=== PATIENT | female | born 1990 | race Caucasian/White ===

== ENCOUNTER 2017-12-09 08:57 | Inpatient (IN) | payer OTHER ==
[~2017-12-09 08:57] MED LIST: ACETAMINOPHEN 500 MG TAB PO PRN; DIPHENHYDRAMINE 50 MG/ML VIAL IV PRN; METOCLOPRAMIDE 10 MG/2mL INJ IV PRN; ONDANSETRON 4 MG/2 ML VIAL IV PRN; Ringers Lactate 1,000 ML IV PRN; Ringers Lactate 1,000 ML IV SCH
[2017-12-09] MEDS ORDERED: miSOPROStol 100 MCG TAB PO ONE (10:03)
--- OUTSIDE RECORDS SUMMARY | 2017-12-09 10:23 | XMS REPORT ---
:1990 Author Organization eClinicalWorks Care Team Providers Name Role Phone Ludmila Mendoza Provider Role Unavailable Allergies No Known Allergies Problems Problem Type Condition Code Onset Dates Condition Status Problem Normal first in second Z34.02 Active trimester Assessment Normal first in second Z34.02 Active trimester Problem Major depressive disorder, single F32.9 Active episode, unspecified Assessment Major depressive disorder, single F32.9 Active episode, unspecified Medications Medication Code Code Instructions Start End Date Status Dosage System Date Prenate Basia [facility] [id number] 29-0.6-0.4-350 July 31, Active 1 capsule MG Orally Once a 2017 Results No Known Results Summary Purpose eClinicalWorks Submission
--- OUTSIDE RECORDS SUMMARY | 2017-12-09 10:23 | XMS REPORT ---
[...] Date Status Dosage System Date Prenate Basia [facility] [id number] 29-0.6-0.4-350 July 31, Active 1 capsule MG Orally Once a 2017 Results No Known Results Summary Purpose eClinicalWorks Submission
--- OUTSIDE RECORDS SUMMARY | 2017-12-09 10:23 | XMS REPORT ---
:1990 Author Organization eClinicalWorks Care Team Providers Name Role Phone Ludmila Mendoza Provider Role Unavailable Allergies No Known Allergies Problems Problem Type Condition Code Onset Dates Condition Status Problem Other mental disorders complicating O99.343 Active , third trimester Problem SGA (small for gestational age) P05.10 Active Problem Supervision of young primigravida, O09.613 Active third trimester Problem Major depressive disorder, single F32.9 Active episode, unspecified Medications Medication Code System Code Instructions Start End Date Status Dosage Date Ferralet 90 [facility] [id number] 90-1 MG Orally November 22, Active 1 tablet twice a day 2018 after a meal Results No Known Results Summary Purpose eClinicalWorks Submission
--- OUTSIDE RECORDS SUMMARY | 2017-12-09 10:23 | XMS REPORT ---
:1990 Author Organization eClinicalWorks Care Team Providers Name Role Phone Ludmila Mendoza Provider Role Unavailable Allergies No Known Allergies Problems Problem Type Condition Code Onset Dates Condition Status Assessment Major depressive disorder, single F32.9 Active episode, unspecified Assessment Other mental disorders complicating O99.343 Active , third trimester Problem Other mental disorders complicating O99.343 Active , third trimester Problem SGA (small for gestational age) P05.10 Active Problem Supervision of young primigravida, O09.613 Active third trimester Assessment Supervision of young primigravida, O09.613 Active third trimester Assessment SGA (small for gestational age) P05.10 Active Problem Major depressive disorder, single F32.9 Active episode, unspecified Medications Medication Code Code Instructions Start End Date Status Dosage System Date Prenate [facility] [id number] 29-0.6-0.4-350 July 31, Active 1 capsule MG Orally Once a 2017 Results No Known Results Summary Purpose eClinicalWorks Submission
--- OUTSIDE RECORDS SUMMARY | 2017-12-09 10:23 | XMS REPORT ---
:1990 Author Organization eClinicalWorks Care Team Providers Name Role Phone Ludmila Mendoza Provider Role Unavailable Allergies No Known Allergies Problems Problem Type Condition Code Onset Dates Condition Status Assessment SGA (small for gestational age) P05.10 Active Assessment Other mental disorders complicating O99.343 Active , third trimester Problem Other mental disorders complicating O99.343 Active , third trimester Problem SGA (small for gestational age) P05.10 Active Problem Supervision of young primigravida, O09.613 Active third trimester Assessment Supervision of young primigravida, O09.613 Active third trimester Assessment Major depressive disorder, single F32.9 Active episode, unspecified Problem Major depressive disorder, single F32.9 Active episode, unspecified Medications Medication Code Code Instructions Start End Date Status Dosage System Date Prenate Mini [facility] [id number] 29-0.6-0.4-350 July 31, Active 1 capsule MG Orally Once a 2018 day Ferralet 90 [facility] [id number] 90-1 MG Orally November 22, Active 1 tablet twice a day 2018 after a meal Results No Known Results Summary Purpose eClinicalWorks Submission
--- OUTSIDE RECORDS SUMMARY | 2017-12-09 10:23 | XMS REPORT ---
[...] episode, unspecified Assessment Other mental disorders complicating O99.340 Active , unspecified trimester Medications Medication Code Code Instructions Start End Date Status Dosage System Date Prenate [facility] [id number] 29-0.6-0.4-350 July 31, Active 1 capsule MG Orally Once a 2017 Results No Known Results Summary Purpose eClinicalWorks Submission
--- OUTSIDE RECORDS SUMMARY | 2017-12-09 10:23 | XMS REPORT ---
:1990 Author Organization eClinicalWorks Care Team Providers Name Role Phone Nicholas Luna Provider Role Unavailable Allergies No Known Allergies [...] Start End Date Status Dosage System Date Ferralet 90 [facility] [id number] 90-1 MG Orally November 22, Active 1 tablet twice a day 2017 after a meal Prenate Mini [facility] [id number] 29-0.6-0.4-350 July 31, Active 1 capsule MG Orally Once a 2018 day Results No Known Results Summary Purpose eClinicalWorks Submission
--- OUTSIDE RECORDS SUMMARY | 2017-12-09 10:23 | XMS REPORT ---
:1990 Author Organization eClinicalWorks Care Team Providers Name Role Phone Ludmila Mendoza Provider Role Unavailable Allergies No Known Allergies Problems Problem Type Condition Code Onset Dates Condition Status Assessment Other mental disorders complicating O99.343 Active , third trimester Problem Other mental disorders complicating O99.343 Active , third trimester Problem SGA (small for gestational age) P05.10 Active Problem Supervision of young primigravida, O09.613 Active third trimester Assessment SGA (small for gestational age) P05.10 Active Assessment Supervision of young primigravida, O09.613 Active third trimester Problem Major depressive disorder, single F32.9 Active episode, unspecified Medications Medication Code Code Instructions Start End Date Status [facility]osage System [facility] [id number] 29-0.6-0.4-350 July 31, Active 1 capsule MG Orally Once a 2017 Results No Known Results Summary Purpose eClinicalWorks Submission
--- OUTSIDE RECORDS SUMMARY | 2017-12-09 10:23 | XMS REPORT ---
:1990 Author Organization eClinicalWorks Care Team Providers Name Role Phone MendozaLudmila gordon Provider Role Unavailable Allergies No Known Allergies Problems Problem Type Condition Code Onset Dates Condition Status Assessment Other mental disorders complicating O99.343 Active , third trimester Problem Other mental disorders complicating O99.343 Active , third trimester Problem SGA (small for gestational age) P05.10 Active Problem Supervision of young primigravida, O09.613 Active third trimester Assessment SGA (small for gestational age) P05.10 Active Assessment Major depressive disorder, single F32.9 Active episode, unspecified Problem Major depressive disorder, single F32.9 Active episode, unspecified Assessment Supervision of young primigravida, O09.613 Active third trimester Medications Medication Code Code Instructions Start End Date Status Dosage System Date Prenate [facility] [id number] 29-0.6-0.4-350 July 31, Active 1 capsule MG Orally Once a 2017 Results No Known Results Summary Purpose eClinicalWorks Submission
--- NOTE | 2017-12-09 11:15 | P.HP ---
Certification for Inpatient Patient admitted to: Inpatient With expected LOS: >2 Midnights Patient will require the following post-hospital care: None Practitioner: I am a practitioner with admitting privileges, knowledge of patient current condition, hospital course, and medical plan of care. Services: Services provided to patient in accordance with Admission requirements found in Title 42 Section 412.3 of the Code of Federal Regulations Patient History Date of Service: 12/09/17 Reason for admission: Induction of labor History of Present Illness: 26-year-old G 1 at 39 weeks 1 day admitted for induction of labor. is uncomplicated by FGR, - most recent ultrasound improved at 22nd %ile with polyhydramnios noted, h/o depression on anemia, and mild thrombocytopenia. She started care at approximately 12 weeks and has had adequate followup including serial growth ultrasounds with MFM. She has been taking Lexapro since early and iron supplementation. On admission, she denies any complaints. POOJA: 12/15/2017. GBS negative. Allergies No Known Allergies Allergy (Unverified 12/03/17 11:26) Home medications list reviewed: Yes - Past Medical/Surgical History Diabetic: No -: Depression/anxiety Past Surgical History: Patient denies surgical history - Family History Mother -: Hypertension - Social History Smoking Status: Never smoker Alcohol use: No CD- Drugs: No Caffeine use: No Place of Residence: Home Review of Systems 10-point ROS is otherwise unremarkable Physical Examination - Physical Exam General: Alert, In no apparent distress, Oriented x3 Respiratory: Other (Normal effort) Cardiovascular: Normal pulses Musculoskeletal: No swelling, No tenderness Integumentary: No rashes, No breakdown Neurological: Normal speech, Normal strength at 5/5 x4 extr Female Exam - Female Pelvic Cervix: Dilation (1), Effacement (30), station (-3), Other (Firm, posterior) Uterus: Non-tender, Soft, Gravid - Obstetrics heart rate tracing: Category 1 Contractions: Frequency (Irregular) Amniotic membrane: Intact Assessment and Plan - Problems (Diagnosis) (1) FGR ( growth retardation) Current Visit: Yes Status: Acute Plan: Follow up with MFM has been appropriate. Recommended delivery between 39-40 weeks. Patient admitted for cervical ripening with Cytotec PV. Transition to Pitocin when cervix is favorable. Epidural per patient request. (2) Anemia affecting in third trimester Current Visit: Yes Status: Acute Plan: Iron supplementation (3) Thrombocytopenia affecting Current Visit: Yes Status: Acute Plan: Mild (4) Depression affecting in third trimester, antepartum Current Visit: Yes Status: Acute Plan: Continue Lexapro 10 mg nightly. - Advance Directives Does patient have a Living Will: No Does patient have a Durable POA for Healthcare: No
[2017-12-09] MEDS ORDERED: BUTORPHANOL 1 MG/ML INJ IV PRN (11:18)
[2017-12-09 11:41] LABS: RPR Titer ND
[2017-12-09 11:47] LABS: Urine Appearance CLOUDY; Urine Blood NEGATIVE (NEG); Urine Color DK YELLOW; Urine Glucose NEGATIVE (NEG); Urine Protein TRACE (NEG)
[2017-12-09 11:59] LABS: BUN Blood Urea Nitrogen 4 mg/dL (7-18); Bicarbonate 24 mmol/L (21-32); Glucose Level 88 mg/dL (74-106); Potassium 3.7 mmol/L (3.5-5.1); Sodium Level 142 mmol/L (136-145)
[2017-12-09 12:13] LABS: Urine Bilirubin 1+ (NEG); Urine Microscopic Reflex ORDER UMIC
[2017-12-09 12:20] LABS: Urine Bacteria <20 /HPF (<20); Urine Culture Reflex Order REFLEXED; Urine Mucus 1+ /HPF (NONE SEEN); Urine RBC <5 /HPF (NONE SEEN)
[2017-12-09 12:22] VITALS: BMI 26.1
[2017-12-09 12:29] LABS: Absolute Lymphocytes (CBC) 1.3 K/uL (0.7-4.9); Absolute Monocytes 0.5 K/uL (0.1-1.3); Absolute Neutrophil 7.3 K/uL (1.8-8.0); Basophils % 0.3 % (0-1.3); Eosinophils % 0.4 % (0-4.4); Hematocrit 28.6 % (36.0-45.0); MCH 26.4 pg (27.0-35.0); MCV 78.2 fL (80-100); Monocytes % 5.5 % (3.3-12.3); RBC Red Blood Cell Count 3.65 M/uL (3.86-4.86)
[2017-12-09] MEDS ORDERED: miSOPROStol 100 MCG TAB VAG SCH (13:00)
[2017-12-10 00:08] LABS: RPR (Rapid Plasma Reagin) NON-REACT (NON-REACT)
[2017-12-10] MEDS ORDERED: ROPIVACAINE HCL 100 ML IV PRN (05:11)
[2017-12-10] MEDS ORDERED: ROPIVACAINE HCL 20 ML ONE (05:12)
[2017-12-10] MEDS ORDERED: ROPIVACAINE HCL 2 MG/ML 100ML IV ONE (05:13)
[2017-12-10] MEDS ORDERED: ROPIVACAINE HCL 100 ML IV ONE (05:32)
--- NOTE | 2017-12-10 06:03 | P.PN ---
Date of Service: 12/10/17 RN Lula called to notify patient had SROM and is now requesting an epidural. She also notes lower heart rate. Patient is sleepy, but otherwise feels well. VSS, maternal heart rate also lower as compared to admission Tracing reviewed: baseline 110, mod felicia, +accelerations, occasional early decels. [place]: q3-5 min SVE: 5-6 [address] placement of FSE and materal pulse ox. Continue fluid bolus as pt is requesting an epidural. Hold stadol and reglan. Continue close monitoring.
[2017-12-10] MEDS ORDERED: LIDOCAINE 2% MPF 5 ML VIAL ONE (06:24)
[2017-12-10] MEDS ORDERED: METHYLERGONOVINE 0.2MG/ML AMP IM ONE ×2 (06:40→06:49)
[2017-12-10] MEDS ORDERED: LIDOCAINE 2% INJ, 20 mL 20 ML ONE (06:41)
[2017-12-10] MEDS ORDERED: OXYTOCIN/LR 20 UNIT/1,000 ML BAG IV ONE (06:41)
[2017-12-10] MEDS ORDERED: LIDOCAINE 2% 20 ML MDV IV ONE (06:51)
[2017-12-10] MEDS ORDERED: OXYTOCIN/LR 20 UNIT/1,000 ML BAG IV SCH (07:00)
[2017-12-10] MEDS ORDERED: Oxycodone HCl/Acetaminophen 1 TAB TAB PO PRN (11:06)
[2017-12-10] MEDS ORDERED: IBUPROFEN 200 MG TAB PO PRN (11:06)
--- NOTE | 2017-12-10 17:26 | P.OP ---
Preoperative diagnosis: Term IUP, FGR, Induction of labor Postoperative diagnosis: Same Primary procedure: Anesthesia: Epidural Estimated blood loss: 400 cc Specimen: Placenta Findings: See operative report Operative Technique: FINDINGS: Female fetus in OA position, APGARS of 9/9 at 1 and 5 minutes respectively, weight of 6 lb, clear amniotic fluid. Loose nuchal cord x1. Normal appearing placenta. 2nd degree midline laceration and bilateral labial tears. See delivery summary for length of stages I and II. HISTORY OF PRESENT ILLNESS: The patient is a 26-year-old female who is a G1P at 39w1d who was admitted for an induction of labor. She had adequate care and was complicated by anxiety/depression, anemia, and FGR (improved over time). She was followed by MFM who directed delivery by 39 weeks. Labs were normal and she had otherwise routine care. On admission, she was noted to be 1 cm dilated. She denied complaints and noted positive movement. PROCEDURE DETAILS: The patient was admitted to Labor and Delivery for induction , which was done with cytotec. Spontaneous labor set in and pain increased. She requested an epidural, which was placed with good result. She had SROM with clear fluid noted. Labor progressed normally. She had a spontaneous vaginal delivery of a live born female with clear fluid from an BENY position over an intact perineum at 08;15. After controlled delivery of the head, a loose nuchal cord was noted, which was quickly reduced. Next, the shoulders and body followed without difficulty. Bulb suctioning was done. The was placed on the patient's abdomen for skin to skin contact. The cord was clamped and cut. Findings as stated above. There was no depression. was crying, vigorous, and moving all extremities. Spontaneous delivery of an intact placenta with a three-vessel cord was noted at 08:20. On examination, there was 12nd degree midline laceration. It was repaire 2-0 vicryl in the usual fashion. On vaginal exam, there bilateral labial lacerations noted. They were repaired using 3-0 chromic in a continuous , running un-locked fashion. Patient tolerated procedure well and there were no complications. Estimated blood loss was ~400 cc. Mother and are in recovery doing well at this time. Complications: None Fluids & blood products: NYVF Transferred to: Recovery Room Condition: Good
[2017-12-11 03:17] LABS: HBsAG Nonreactive (Nonreactive)
[2017-12-11 07:04] VITALS: BP 141/79; TEMP 96.4
--- NOTE | 2017-12-11 08:38 | P.DS ---
Admission Date: 12/09/17 Discharge Date: 12/16/17 Disposition: ROUTINE DISCHARGE Discharge Condition: GOOD Reason for Admission: Induction of labor - Problems (1) FGR ( growth retardation) Onset Date: 12/10/17 Status: Resolved (2) Anemia affecting in third trimester Onset Date: 12/10/17 Status: Acute (3) Thrombocytopenia affecting Onset Date: 12/10/17 Status: Acute (4) Depression affecting in third trimester, antepartum Onset Date: 12/10/17 Status: Resolved Brief History of Present Illness: 26-year-old G 1 at 39 weeks 1 day admitted for induction of labor. is uncomplicated by FGR, - most recent ultrasound improved at 22nd %ile with polyhydramnios noted, h/o depression on lexapro anemia, and mild thrombocytopenia. She started care at approximately 12 weeks and has had adequate followup including serial growth ultrasounds with MFM. She has been taking Lexapro since early and iron supplementation. On admission, she denies any complaints. POOJA: 12/15/2017. GBS negative. Hospital Course: Pt was admitted for IOL, which was done with cytotec. Labor progressed normally and she had an . PP course was uncomplicated and she is her infant. Pain is well controlled, she is having spontaneous voids, and lochea is described as normal Vital Signs/Physical Exam: Temp Pulse Resp BP Pulse Ox 96.4 F L 73 16 141/79 H 12/11/17 07:03 12/11/17 07:03 12/11/17 07:03 12/11/17 07:03 General: Alert, In no apparent distress, Oriented x3 Respiratory: Other (Normal effort) Cardiovascular: Normal pulses Gastrointestinal: Soft and benign, No tenderness, Other (Uterus firm and below umbilicus) Musculoskeletal: No swelling, No erythema, No tenderness Integumentary: No rashes, No breakdown Neurological: Normal speech, Normal strength at 5/5 x4 extr, Cranial nerves 3- 12 intact Laboratory Data at Discharge: WBC 9.2 K/uL (4.3-10.9) 12/09/17 11:11 Hgb 9.6 g/dL (12.0-15.0) L 12/09/17 11:11 Hct 28.6 % (36.0-45.0) L 12/09/17 11:11 Plt Count 143 K/uL (152-406) L 12/09/17 11:11 Sodium 142 mmol/L (136-145) 12/09/17 11:11 Potassium 3.7 mmol/L (3.5-5.1) 12/09/17 11:11 BUN 4 mg/dL (7-18) L 12/09/17 11:11 Creatinine 0.60 mg/dL (0.55-1.3) 12/09/17 11:11 Glucose 88 mg/dL (74-106) 12/09/17 11:11 Home Medications: Escitalopram [Lexapro*] 10 mg PO DAILY 12/10/17 Ibuprofen 800 mg PO TID PRN #30 tablet 12/11/17 Iron Carb,Gl/FA/B12/C/Docusate [Ferralet 90 Tablet] 1 each PO BID #60 tablet 05/30 New Medications: Ibuprofen 800 mg PO TID PRN #30 tablet PRN Reason: Abdominal Cramps Iron Carb,Gl/FA/B12/C/Docusate [Ferralet 90 Tablet] 1 each PO BID #60 tablet Patient Discharge Instructions: Pelvic rest for 6 weeks after . Notify doctor of heavy bleeding, uncontrolled pain, fever/chills, or other signs of infection. Diet: Regular Activity: Ad delmi Followup: Ludmila Mendoza MD [ACTIVE - CAN ADMIT] - (Follow up care with Dr. Mendoza in 6 weeks for post visit. [phone])
[2017-12-11 09:05] LABS: Hematocrit 26.1 % (36.0-45.0); MCH 25.8 pg (27.0-35.0); MCV 77.6 fL (80-100); RBC Red Blood Cell Count 3.36 M/uL (3.86-4.86)
== END 2017-12-11 16:00 | disposition home or self-care (01) | DRG 775 ==
LOC: 2ND-WC 10:18
PROVIDERS: ADMIT Obstetrics & Gynecology; ATTEND Obstetrics & Gynecology
PROC: 3E0P7VZ Introduction of Hormone into Female Reproductive, Via Natural or Artificial Opening (ICD-10-PCS; 2017-12-09)
PROC: 10E0XZZ Delivery of Products of Conception, External Approach (ICD-10-PCS; principal; 2017-12-10)
PROC: 0KQM0ZZ Repair Perineum Muscle, Open Approach (ICD-10-PCS; 2017-12-10)
DX: O36.5930 Maternal care for other known or suspected poor fetal growth, third trimester, not applicable or unspecified (principal); O99.12 Other diseases of the blood and blood-forming organs and certain disorders involving the immune mechanism complicating childbirth; O69.81X0 Labor and delivery complicated by cord around neck, without compression, not applicable or unspecified; O70.1 Second degree perineal laceration during delivery; O40.3XX0 Polyhydramnios, third trimester, not applicable or unspecified; O99.02 Anemia complicating childbirth; D64.9 Anemia, unspecified; D69.6 Thrombocytopenia, unspecified; O99.344 Other mental disorders complicating childbirth; F32.9 Major depressive disorder, single episode, unspecified; Z3A.39 39 weeks gestation of pregnancy; Z37.0 Single live birth
CPT/HCPCS: 36415; 80048; 81003; 81015; 85025; 85027; 86592; 86850; 86900; 86901; 87086; 87088; 87340; J0595; J2210; J2590; J2795